=== PATIENT | female | born 1930 | race Caucasian/White ===

== ENCOUNTER → 2016-10-11 | Outpatient (CLI) | payer MEDICARE, BC | END | disposition home or self-care (01) | LOC: CFH 13:30 | PROVIDERS: ATTEND Internal Medicine Cardiovascular Disease | DX: I34.0 Nonrheumatic mitral (valve) insufficiency (principal); I34.8 Other nonrheumatic mitral valve disorders; I07.1 Rheumatic tricuspid insufficiency; I37.1 Nonrheumatic pulmonary valve insufficiency; I10 Essential (primary) hypertension; I48.91 Unspecified atrial fibrillation | CPT/HCPCS: 93306 ==

== ENCOUNTER → 2018-11-28 | Outpatient (CLI) | payer MEDICARE, BC | END | disposition home or self-care (01) | LOC: CVU 14:11 | PROVIDERS: ATTEND Internal Medicine Cardiovascular Disease | DX: I08.3 Combined rheumatic disorders of mitral, aortic and tricuspid valves (principal); I27.0 Primary pulmonary hypertension; I48.91 Unspecified atrial fibrillation | CPT/HCPCS: 93306 ==

== ENCOUNTER 2019-01-23 15:27 | Outpatient (CLI) | payer MEDICARE, BC | END 2019-01-23 23:59 | disposition home or self-care (01) | LOC: CFH 15:27 | PROVIDERS: ATTEND Registered Nurse | DX: I77.810 Thoracic aortic ectasia (principal); R09.02 Hypoxemia | CPT/HCPCS: 71046 ==

== ENCOUNTER → 2020-10-03 | Outpatient (CLI) | payer MEDICARE, BC ==
[2020-10-03 15:15] LABS: ANION GAP 7 mmol/L (5-15); CALCIUM 9.4 mg/dL (8.5-10.1); CHLORIDE 106 mmol/L (98-107); CREATININE 1.38 mg/dL (0.55-1.02)
== END | disposition home or self-care (01) ==
LOC: RAD 14:44
PROVIDERS: ATTEND Internal Medicine Cardiovascular Disease
DX: E78.2 Mixed hyperlipidemia (principal); I13.10 Hypertensive heart and chronic kidney disease without heart failure, with stage 1 through stage 4 chronic kidney disease, or unspecified chronic kidney disease; I48.0 Paroxysmal atrial fibrillation; N18.9 Chronic kidney disease, unspecified; R32 Unspecified urinary incontinence; R60.9 Edema, unspecified; R73.09 Other abnormal glucose; R73.9 Hyperglycemia, unspecified; E78.5 Hyperlipidemia, unspecified
CPT/HCPCS: 36415; 71046; 80048; 80162

== ENCOUNTER → 2020-12-09 | Outpatient (CLI) | payer MEDICARE, BC | END | disposition home or self-care (01) | LOC: CFH 13:25 | PROVIDERS: ATTEND Internal Medicine Cardiovascular Disease | DX: I08.8 Other rheumatic multiple valve diseases (principal); I27.0 Primary pulmonary hypertension | CPT/HCPCS: 93306 ==

== ENCOUNTER 2021-01-21 15:08 | Emergency (ER) | payer MEDICARE, BC ==
[~2021-01-21] VITALS: Ht 162.6 cm; Wt 99.2 kg
--- NOTE | 2021-01-21 15:30 | NUR ---
pt presents to ed with rash on low abd and left groin. Pt also reports increased swelling to bilateral legs with intermittent weeping on left leg. Pt repeatedly states "I just need some antibiotics and to go" daughter at bedside.
[2021-01-21] MEDS ORDERED: GLIP5TAB10 PO (15:35)
[2021-01-21] MEDS ORDERED: FUROSEMIDE PO (15:35)
[2021-01-21] MEDS ORDERED: METO-93 PO (15:35)
[2021-01-21] MEDS ORDERED: APIX5TAB PO (15:35)
[2021-01-21] MEDS ORDERED: ROSU20TA2 PO (15:35)
[2021-01-21] MEDS ORDERED: IRBE150T9 PO (15:35)
[2021-01-21] MEDS ORDERED: SPIRONOLACTONE PO (15:35)
[2021-01-21] MEDS ORDERED: DIGO125T85 PO (15:35)
--- NOTE | 2021-01-21 15:43 | NUR ---
PT STATES "THEY KEPT ALL THIS ON LONG ENOUGH" IN REFERENCE TO BP AND SPO2 MEASUREMENT. PT EAGER TO GO HOME. EDUCATED ON NEED TO STAY FOR FURTHER TESTS. NAD NOTED AT THIS TIME.
[2021-01-21 16:11] LABS: BASOPHILS % (AUTO) 0 % (0-1); EOSINOPHILS % (AUTO) 0 % (1-7); LYMPHOCYTES % (AUTO) 24 % (22-44); MEAN CORPUSCULAR HEMOGLOBIN 33.4 pg (27.0-34.8); MEAN PLATELET VOLUME 10.3 fL (7.4-10.4); MONOCYTES % (AUTO) 17 % (2-9); NEUTROPHILS % (AUTO) 58 % (42-75); PLATELET COUNT 98 x10^3/uL (130-400); RED BLOOD COUNT 4.57 x10^6/uL (3.82-5.3); RED CELL DISTRIBUTION WIDTH 17.6 % (9.6-15.2)
[2021-01-21 16:21] LABS: ALBUMIN 3.4 g/dL (3.4-5.0); ANION GAP 6 mmol/L (5-15); CALCIUM 9.5 mg/dL (8.5-10.1); CHLORIDE 104 mmol/L (98-107)
--- NOTE | 2021-01-21 16:24 | NUR ---
PT SITTING IN BED, NAD NOTED AT THIS TIME. SIDE RAILS UP, CALL LIGHT IN REACH.
[2021-01-21 16:27] LABS: ALANINE AMINOTRANSFERASE 36 U/L (12-78); ALKALINE PHOSPHATASE 221 U/L (45-117); BILIRUBIN,TOTAL 2.2 mg/dL (0.2-1.0)
[2021-01-21 16:36] VITALS: BP 135/71
--- NOTE | 2021-01-21 16:36 | NUR ---
ERMD AT BEDSIDE FOR REASSESSMENT OF PT.
[2021-01-21] MEDS ORDERED: FUROSEMIDE 40 MG/4 ML IV ONE (17:00)
[2021-01-21] MEDS ORDERED: FUROSEMIDE 40 MG/4 ML ONE (17:19)
--- NOTE | 2021-01-21 18:52 | NUR ---
PT CHART UP FOR RECHECK.
== END 2021-01-21 19:29 | disposition home or self-care (01) ==
LOC: ED 19:05
DX: R60.0 Localized edema (principal); B35.6 Tinea cruris; I50.9 Heart failure, unspecified; R07.89 Other chest pain; R10.9 Unspecified abdominal pain
CPT/HCPCS: 36415; 71045; 74176; 80053; 83880; 85025; 93005; 93971; 96374; 99285; J1940